=== PATIENT | male | born 1975 | race American Indian/Alaskan Native ===

== ENCOUNTER 2018-08-19 09:42 | Emergency (ER) | payer MEDICAID ==
[2018-08-19 10:08] VITALS: BMI 26.1
[2018-08-19 10:38] VITALS: BP 143/81; PULSE 102; RESP 18; TEMP 98.4; O2SAT 96
[2018-08-19 10:39] LABS: BASO % 0.5 % (0.0-2.0); EOS % 0.3 % (0.0-4.0); HEMOGLOBIN 14.8 g/dL (12.0-18.0); LYMPH # 2.2 K/uL (1.0-4.3); LYMPH % 28.5 % (20.0-40.0); MEAN CELL VOLUME 84.8 fL (80.0-94.0); MEAN CORPUSCULAR HEMOGLOBIN 28.4 pg (27.0-31.0); MEAN CORPUSCULAR HGB CONC 33.4 g/dL (33.0-37.0); MEAN PLATELET VOLUME 6.9 fL (7.2-11.7); MONO # 0.5 K/uL (0.0-0.8); MONO % 6.3 % (0.0-10.0); NEUT % 64.4 % (50.0-75.0); RBC 5.23 Mil/uL (4.40-5.90); RED CELL DISTRIBUTION WIDTH 14.3 % (11.5-14.5); WHITE BLOOD COUNT 7.8 K/uL (4.8-10.8)
[2018-08-19 10:52] LABS: ALB/GLOB RATIO 1.5 (1.0-2.1); ALBUMIN 4.7 g/dL (3.5-5.0); ALT/SGPT 37 U/L (21-72); AST/SGOT 36 U/L (17-59); BLOOD UREA NITROGEN 10 mg/dL (9-20); CALCIUM 9.2 mg/dl (8.6-10.4); GFR NON-AFRICAN AMERICAN > 60
--- NOTE | 2018-08-19 11:13 | C.PDOC ---
History Of Present Illness 42 y/o male is brought in by ambulance for alcohol intoxication. Patient states he wants rehab and has been in alcohol rehab before. He admits he smokes but denies other drugs. Patient is currently intoxicated to provide any further information. Time Seen by Provider: 08/19/18 09:59 Chief Complaint (Nursing): Substance Abuse History Per: Patient, EMS History/Exam Limitations: intoxication Onset/Duration Of Symptoms: Hrs Current Symptoms Are (Timing): Still Present Modifying Factor(s): Alcohol Past Medical History Reviewed: Historical Data, Nursing Documentation, Vital Signs Vital Signs: Last Vital Signs Temp 98.4 F 08/19/18 10:31 Pulse 102 H 08/19/18 10:31 Resp 18 08/19/18 10:31 BP 143/81 08/19/18 10:31 Pulse Ox 96 08/19/18 10:31 Primary Care Provider: FAMILY PROVIDER,NO - Medical History PMH: No Chronic Diseases Family History: States: No Known Family Hx - Social History Hx Alcohol Use: Yes Hx Substance Use: No Review Of Systems Review Of Systems: ROS cannot be obtained secondary to pt's inabilty to answer questions. Constitutional: Negative for: Fever Eyes: Negative for: Pain Respiratory: Negative for: Cough Neurological: Negative for: Weakness Physical Exam - Physical Exam Appears: Non-toxic, No Acute Distress Skin: Warm, Dry Head: Atraumatic Eye(s): bilateral: Normal Inspection Oral Mucosa: Moist Neck: Supple Chest: Symmetrical Cardiovascular: Rhythm Regular Respiratory: Normal Breath Sounds Gastrointestinal/Abdominal: Soft, No Tenderness Extremity: Bilateral: Atraumatic, Normal Color And Temperature Neurological/Psych: Normal Speech Gait: Steady ED Course And Treatment - Laboratory Results Result Diagrams: 08/19/18 10:35 08/19/18 10:35 Lab Results: Total Bilirubin 0.4 mg/dL (0.2-1.3) 08/19/18 10:35 AST 36 U/L (17-59) 08/19/18 10:35 ALT 37 U/L (21-72) 08/19/18 10:35 Alkaline Phosphatase 72 U/L (38-126) 08/19/18 10:35 Total Protein 8.0 g/dL (6.3-8.3) 08/19/18 10:35 Albumin 4.7 g/dL (3.5-5.0) 08/19/18 10:35 Globulin 3.2 gm/dL (2.2-3.9) 08/19/18 10:35 Albumin/Globulin Ratio 1.5 (1.0-2.1) 08/19/18 10:35 Lab Interpretation: Abnormal O2 Sat by Pulse Oximetry: 96 (RA) Pulse Ox Interpretation: Normal Progress Note: labs ordewred. Patient eloped from ED before work-up complete Medical Decision Making Medical Decision Making: Plan: --Labs --UA --Glucose POC 13:09 Patient has eloped. Disposition - Disposition Disposition: ELOPEMENT - ER ONLY Disposition Time: 13:00 Condition: STABLE Forms: [employer] ([place]) - Clinical Impression Clinical Impression: Alcohol intoxication - PA / CORRECTIONAL COUNSELOR/CASE MANAGER / Resident Statement MD/DO has reviewed & agrees with the documentation as recorded. - Scribe Statement The provider has reviewed the documentation as recorded by the Scribe Joselin Gross All medical record entries made by the Scribe were at my direction and personally dictated by me. I have reviewed the chart and agree that the record accurately reflects my personal performance of the history, physical exam, medical decision making, and the department course for this patient. I have also personally directed, reviewed, and agree with the discharge instructions and disposition.
== END 2018-08-19 13:15 | disposition left against medical advice (07) ==
LOC: C.ER 09:42
DX: F10.129 Alcohol abuse with intoxication, unspecified (principal); Y90.8 Blood alcohol level of 240 mg/100 ml or more